=== PATIENT | female | born 1960 | race Two or more races ===

== ENCOUNTER 2024-09-14 07:28 | Outpatient (CLI) | payer OTHER | END 2024-09-14 07:43 | disposition home or self-care (01) | LOC: MAMO-SONO 07:28 | PROVIDERS: ATTEND General Practice | DX: R10.9 Unspecified abdominal pain (principal); E03.9 Hypothyroidism, unspecified; E04.1 Nontoxic single thyroid nodule; Z13.228 Encounter for screening for other metabolic disorders; Z12.31 Encounter for screening mammogram for malignant neoplasm of breast; I11.9 Hypertensive heart disease without heart failure; R73.9 Hyperglycemia, unspecified; M32.9 Systemic lupus erythematosus, unspecified; N39.0 Urinary tract infection, site not specified; M25.50 Pain in unspecified joint; E55.9 Vitamin D deficiency, unspecified ==

== ENCOUNTER 2024-10-05 11:53 | Outpatient (CLI) | payer OTHER | END 2024-10-05 11:54 | disposition home or self-care (01) | LOC: NUCLEAR 11:53 | DX: M81.0 Age-related osteoporosis without current pathological fracture (principal) ==